=== PATIENT | female | born 2000 | race Caucasian/White ===

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

== ENCOUNTER 2022-10-05 23:17 | Emergency (ER) | payer OTHER ==
[~2022-10-05] VITALS: Ht 154.9 cm; Wt 61.2 kg
[~2022-10-05 23:17] MED LIST changes: +IBUPROFEN400 MG PO; +MAXFE CAPLET1 EACH PO; +PREPLUS CA-FE1 EACH PO; +SENOKOT-S TABL1 EACH PO
== END 2022-10-06 05:09 | disposition home or self-care (01) ==
LOC: ER 23:17
DX: R10.2 Pelvic and perineal pain (principal); N93.9 Abnormal uterine and vaginal bleeding, unspecified